=== PATIENT | male | born 1950 | race Caucasian/White ===

== ENCOUNTER 2025-06-27 18:34 | Inpatient (IN) | payer MEDICARE, OTHER ==
[~2025-06-27] VITALS: Ht 177.8 cm; Wt 70.8 kg
[2025-06-27] MEDS ORDERED: CEFTRIAXONE 1GM BAG (ER ONLY) 50 ML IV ONE (18:57)
[2025-06-27] MEDS: IV NS 0.9% 1,000 ML BAG IV ONE (19:07)
[2025-06-27] MEDS: CEFTRIAXONE 1GM BAG (ER ONLY) 1 GM/50 ML PIGGYBACK IV ONE (19:07)
[2025-06-27 19:11] LABS: PLATELET COUNT (AUTO) 258 K/uL (150-450); RED BLOOD CELL COUNT(AUTO) 4.25 MIL/uL (4.5-6.0); RED CELL DISTRIBUTION WIDTH 14.7 % (11.5-15.0); WHITE BLOOD COUNT (AUTO) 10.8 K/uL (4.3-11.0)
[2025-06-27 19:18] LABS: CALCIUM, SERUM 8.7 mg/dL (8.5-10.1); CREATININE 1.2 mg/dL (0.6-1.3); SODIUM SERUM 137 mmol/L (136-145); UREA NITROGEN, BLOOD 40 mg/dL (7-18)
[2025-06-27 19:27] LABS: LACTIC ACID 1.2 mmol/L (0.4-2.0)
[2025-06-27] MEDS ORDERED: DEXTROSE 50%-WATER 50 ML DISP.SYRIN IV PRN (20:00)
[2025-06-27] MEDS ORDERED: MAG HYDROX/AL HYDROX/SIMETH 30 ML UDC PO PRN (20:00)
[2025-06-27] MEDS ORDERED: ONDANSETRON HCL/PF 4 MG/2 ML VIAL IVP PRN (20:00)
[2025-06-27] MEDS ORDERED: MAGNESIUM HYDROXIDE 30 ML UDC PO PRN (20:00)
[2025-06-27] MEDS: IV NS 0.9% 1,000 ML IV SCH (20:52)
[2025-06-27 23:00] VITALS: BP 141/62; TEMP 97.5; O2SAT 100
[2025-06-27] MEDS: BLOOD SUGAR DIAGNOSTIC 1 EACH STRIP IN SCH (23:07)
[2025-06-27] MEDS: INSULIN REGULAR, HUMAN 100 UNIT/ML 3 ML VIAL SQ PRN (23:08)
[2025-06-27 23:25] VITALS: BP 141/62; TEMP 97.5; O2SAT 100
[2025-06-28] MEDS ORDERED: GABA-532 PO (03:29)
[2025-06-28] MEDS ORDERED: DOCU100C36 PO (03:29)
[2025-06-28] MEDS ORDERED: SENN8.6T19 PO (03:29)
[2025-06-28] MEDS ORDERED: AMLO-213 PO (03:29)
[2025-06-28] MEDS ORDERED: TRAZ-182 PO (03:29)
[2025-06-28] MEDS ORDERED: APIX5TAB PO (03:29)
[2025-06-28] MEDS ORDERED: ATOR80TA PO ×2 (03:29)
[2025-06-28] MEDS ORDERED: TAMS-12 PO (03:29)
[2025-06-28] MEDS ORDERED: DIVA250T PO (03:29)
[2025-06-28 07:30] VITALS: BP 120/61; TEMP 97.5; O2SAT 100
[2025-06-28 07:31] LABS: PLATELET COUNT (AUTO) 240 K/uL (150-450); RED BLOOD CELL COUNT(AUTO) 3.75 MIL/uL (4.5-6.0); RED CELL DISTRIBUTION WIDTH 14.5 % (11.5-15.0); WHITE BLOOD COUNT (AUTO) 10.2 K/uL (4.3-11.0)
[2025-06-28 07:34] LABS: ASPARTATE AMINOTRANSFERASE 14.0 U/L (15-37); CALCIUM, SERUM 8.6 mg/dL (8.5-10.1); CREATININE 1.1 mg/dL (0.6-1.3); PHOSPHORUS 2.7 mg/dL (2.5-4.9); SODIUM SERUM 139.0 mmol/L (136-145); TOTAL PROTEIN, SERUM 7.0 g/dL (6.4-8.2); UREA NITROGEN, BLOOD 21.0 mg/dL (7-18)
[2025-06-28] MEDS: ENSURE ENLIVE CHOC 237 ML CAN PO SCH (08:17)
[2025-06-28] MEDS ORDERED: BISA10SU11 RC (08:29)
[2025-06-28] MEDS ORDERED: MAGN400O6 PO (08:29)
[2025-06-28] MEDS ORDERED: ACET-868 PO (08:29)
[2025-06-28] MEDS ORDERED: DIVA125C5 PO (08:29)
[2025-06-28] MEDS ORDERED: NA P133E RC (08:29)
[2025-06-28] MEDS ORDERED: POLY17PO4 PO (08:29)
[2025-06-28] MEDS: CLOTRIMAZOLE/BETAMETASONE DIPROPIONATE 15 GM TUBE TP SCH (09:45)
[2025-06-28] MEDS: GLUCERNA SHAKE 237 ML CAN PO SCH (11:50)
[2025-06-28] MEDS: POTASSIUM CHLORIDE 20 MEQ TAB.PRT.SR PO ONE (11:51)
[2025-06-28] MEDS: CEFTRIAXONE 1 G in IV D5W 50 ML IV SCH (18:37)
[2025-06-28 20:00] VITALS: BP 151/74; TEMP 97.7; O2SAT 99
[2025-06-29 01:31] LABS: APPEARANCE,URINE SLIGHTLY CLOUDY (CLEAR); BLOOD, URINE 2+ Ery/uL (NEGATIVE); LEUKOCYTE ESTERASE ,URINE 3+ (NEGATIVE); NITRITE, URINE NEGATIVE (NEGATIVE); UGLUCOSE NEGATIVE (NEGATIVE)
[2025-06-29 01:37] LABS: ADD URINE CULTURE YES
[2025-06-29 01:38] LABS: SQUAMOUS EPITHELIAL CELL,UR Few /HPF (None Seen)
[2025-06-29 07:54] LABS: PLATELET COUNT (AUTO) 241 K/uL (150-450); RED BLOOD CELL COUNT(AUTO) 4.09 MIL/uL (4.5-6.0); RED CELL DISTRIBUTION WIDTH 14.5 % (11.5-15.0); WHITE BLOOD COUNT (AUTO) 7.2 K/uL (4.3-11.0)
[2025-06-29 08:00] VITALS: BP 141/59; TEMP 97.3; O2SAT 100
[2025-06-29 08:28] LABS: CALCIUM, SERUM 9.1 mg/dL (8.5-10.1); CREATININE 1.2 mg/dL (0.6-1.3); PHOSPHORUS 2.2 mg/dL (2.5-4.9); SODIUM SERUM 140.0 mmol/L (136-145); UREA NITROGEN, BLOOD 15.0 mg/dL (7-18)
[2025-06-29 16:00] VITALS: BP 148/51; TEMP 97.5; O2SAT 100
[2025-06-29] MEDS: K PHOS NEUTRAL 250 MG TABLET PO ONE (16:34)
[2025-06-29] MEDS: IV NS 0.9% 1,000 ML IV PRN (16:36)
[2025-06-29] MEDS: MEGESTROL ACETATE SUSP 400 MG/10 ML UDC PO SCH (17:56)
[2025-06-29 20:00] VITALS: BP 142/61; TEMP 98.1; O2SAT 99
[2025-06-30 06:56] LABS: PLATELET COUNT (AUTO) 219 K/uL (150-450); RED BLOOD CELL COUNT(AUTO) 3.64 MIL/uL (4.5-6.0); RED CELL DISTRIBUTION WIDTH 14.8 % (11.5-15.0); WHITE BLOOD COUNT (AUTO) 8.1 K/uL (4.3-11.0)
[2025-06-30 07:13] LABS: CALCIUM, SERUM 8.4 mg/dL (8.5-10.1); CREATININE 0.9 mg/dL (0.6-1.3); PHOSPHORUS 2.3 mg/dL (2.5-4.9); SODIUM SERUM 141.0 mmol/L (136-145); UREA NITROGEN, BLOOD 16.0 mg/dL (7-18)
[2025-06-30 09:03] VITALS: BP 137/61; TEMP 97.5; O2SAT 98
[2025-06-30] MEDS: POTASSIUM CHLORIDE 20 MEQ TAB.PRT.SR PO SCH (10:17)
[2025-06-30] MEDS: MODAFINIL 100 MG TABLET PO SCH (14:30)
[2025-06-30 16:00] VITALS: BP 125/65; TEMP 97.5; O2SAT 99
[2025-06-30 16:12] VITALS: BP 130/48; TEMP 98.1; O2SAT 100
[2025-06-30] MEDS: K PHOS NEUTRAL 250 MG TABLET PO ONE (16:50)
[2025-06-30] MEDS: Z GUARD REMEDY 4 OZ OINT TP PRN (16:51)
[2025-06-30 19:00] VITALS: BP 140/54; TEMP 97.5; O2SAT 99
[2025-06-30 20:00] VITALS: BP 140/54; TEMP 98.8; O2SAT 99
[2025-07-01] VITALS (21 sets, daily range): BP systolic 108–157; BP diastolic 44–111; TEMP 97.5–98.2; O2SAT 100
[2025-07-01] MEDS: ACETAMINOPHEN 325 MG TABLET PO PRN (01:18)
[2025-07-01] MEDS ORDERED: ATROPINE SULFATE INJ 0.4 MG/ML VIAL IV PRN (05:30)
[2025-07-01 05:43] LABS: PLATELET COUNT (AUTO) 166 K/uL (150-450); RED BLOOD CELL COUNT(AUTO) 3.51 MIL/uL (4.5-6.0); RED CELL DISTRIBUTION WIDTH 14.9 % (11.5-15.0); WHITE BLOOD COUNT (AUTO) 6.6 K/uL (4.3-11.0)
[2025-07-01 05:50] LABS: CALCIUM, SERUM 8.2 mg/dL (8.5-10.1); CREATININE 1.0 mg/dL (0.6-1.3); SODIUM SERUM 138.0 mmol/L (136-145); UREA NITROGEN, BLOOD 21.0 mg/dL (7-18)
[2025-07-02 06:42] LABS: PLATELET COUNT (AUTO) 227 K/uL (150-450); RED BLOOD CELL COUNT(AUTO) 3.62 MIL/uL (4.5-6.0); RED CELL DISTRIBUTION WIDTH 15.0 % (11.5-15.0); WHITE BLOOD COUNT (AUTO) 6.8 K/uL (4.3-11.0)
[2025-07-02 06:58] LABS: CALCIUM, SERUM 8.5 mg/dL (8.5-10.1); CREATININE 0.9 mg/dL (0.6-1.3); PHOSPHORUS 2.5 mg/dL (2.5-4.9); SODIUM SERUM 139.0 mmol/L (136-145); UREA NITROGEN, BLOOD 15.0 mg/dL (7-18)
[2025-07-02 07:10] LABS: PROSTATE SPECIFIC ANTIGEN SCR 0.99 ng/mL (0.00-4.00)
[2025-07-02 07:33] LABS: FREE PSA < 0.06 ng/mL (0.00-45)
[2025-07-02 08:00] VITALS: BP 160/55; TEMP 97.5; O2SAT 100
[2025-07-02] MEDS: POTASSIUM CHLORIDE 20 MEQ TAB.PRT.SR PO ONE (11:44)
[2025-07-02 12:00] VITALS: BP 150/52; TEMP 97.3; O2SAT 98
[2025-07-02 15:16] LABS: HIV-1/2 ANTIBODY NON REACTIVE (NONREACTIVE)
[2025-07-02 16:00] VITALS: BP 148/52; TEMP 97.9; O2SAT 98
[2025-07-02 20:00] VITALS: BP 157/69; TEMP 97.9; O2SAT 100
[2025-07-02] MEDS: PERMETHRIN 5% CRM 60 GM TUBE TP ONE (20:02)
[2025-07-03] VITALS: BP 151/69; TEMP 98; O2SAT 100
[2025-07-03 04:00] VITALS: BP 155/55; TEMP 98; O2SAT 98
[2025-07-03 07:08] LABS: PLATELET COUNT (AUTO) 222 K/uL (150-450); RED BLOOD CELL COUNT(AUTO) 3.60 MIL/uL (4.5-6.0); RED CELL DISTRIBUTION WIDTH 15.0 % (11.5-15.0); WHITE BLOOD COUNT (AUTO) 8.2 K/uL (4.3-11.0)
[2025-07-03 07:16] LABS: CALCIUM, SERUM 8.7 mg/dL (8.5-10.1); CREATININE 0.9 mg/dL (0.6-1.3); SODIUM SERUM 141.0 mmol/L (136-145); UREA NITROGEN, BLOOD 10.0 mg/dL (7-18)
[2025-07-03 08:00] VITALS: BP 105/60; TEMP 97.7; O2SAT 100
[2025-07-03 11:18] VITALS: BP 140/62; TEMP 97.6; O2SAT 100
[2025-07-03 12:00] VITALS: BP 128/45; TEMP 97.6; O2SAT 100
[2025-07-03 20:00] VITALS: BP 145/60; TEMP 97.5; O2SAT 100
[2025-07-04] VITALS: BP 158/67; TEMP 97.6; O2SAT 98
[2025-07-04 04:00] VITALS: BP 141/57; TEMP 97.8; O2SAT 100
[2025-07-04 08:00] VITALS: BP 109/92; TEMP 97.1; O2SAT 100
[2025-07-04 12:00] VITALS: BP 109/92; TEMP 98.6; O2SAT 100
[2025-07-04 16:00] VITALS: BP 141/55; TEMP 98.1; O2SAT 98
[2025-07-04] MEDS: CEFTRIAXONE 2 G in IV D5W 50 ML IV SCH (18:53)
[2025-07-04 20:00] VITALS: BP 148/62; TEMP 98.1; O2SAT 98
[2025-07-05] VITALS: BP 158/69; TEMP 97.9; O2SAT 98
[2025-07-05 04:00] VITALS: BP 149/68; TEMP 97.5; O2SAT 99
[2025-07-05 08:00] VITALS: BP 166/72; TEMP 97.5; O2SAT 100
[2025-07-05 12:00] VITALS: BP 122/58; TEMP 97.6; O2SAT 100
[2025-07-05 16:00] VITALS: BP 147/51; TEMP 97.1; O2SAT 100
[2025-07-05 20:00] VITALS: BP 165/61; TEMP 97.9; O2SAT 98
[2025-07-05] MEDS: CLONIDINE HCL 0.1 MG TABLET PO PRN (20:37)
[2025-07-06] VITALS: BP 131/53; TEMP 97.5; O2SAT 99
[2025-07-06 04:00] VITALS: BP 131/48; TEMP 97.5; O2SAT 99
[2025-07-06 08:00] VITALS: BP 139/58; TEMP 97.7; O2SAT 100
[2025-07-06 12:00] VITALS: BP 119/51; TEMP 97.3; O2SAT 100
[2025-07-06 16:00] VITALS: BP 136/53; TEMP 97.5; O2SAT 100
[2025-07-06 20:00] VITALS: BP 144/54; TEMP 97.7; O2SAT 99
[2025-07-07] VITALS: BP 150/64; TEMP 97.7; O2SAT 99
[2025-07-07 04:00] VITALS: BP 125/60; TEMP 97.9; O2SAT 98
[2025-07-07 06:53] LABS: PLATELET COUNT (AUTO) 202 K/uL (150-450); RED BLOOD CELL COUNT(AUTO) 3.51 MIL/uL (4.5-6.0); RED CELL DISTRIBUTION WIDTH 16.9 % (11.5-15.0); WHITE BLOOD COUNT (AUTO) 8.7 K/uL (4.3-11.0)
[2025-07-07 07:00] LABS: CALCIUM, SERUM 8.9 mg/dL (8.5-10.1); CREATININE 1.1 mg/dL (0.6-1.3); SODIUM SERUM 139.0 mmol/L (136-145); UREA NITROGEN, BLOOD 25.0 mg/dL (7-18)
[2025-07-07 08:00] VITALS: BP 146/62; TEMP 98.1; O2SAT 100
[2025-07-07 12:00] VITALS: BP 156/63; TEMP 97.7; O2SAT 100
== END 2025-07-07 13:45 | disposition short-term general hospital (02) | DRG 308 ==
LOC: ER 18:55 → MED 21:58 → TELE 07-01 04:00 → ICU 07-01 05:27 → TELE1 07-01 13:51 → UNDODISIN 07-03 14:10 → TELE1 07-03 20:26
PROVIDERS: ATTEND Internal Medicine
DX: R00.1 Bradycardia, unspecified (principal); G93.41 Metabolic encephalopathy; E44.0 Moderate protein-calorie malnutrition; E87.6 Hypokalemia; R62.7 Adult failure to thrive; I10 Essential (primary) hypertension; E11.9 Type 2 diabetes mellitus without complications; N40.0 Benign prostatic hyperplasia without lower urinary tract symptoms; I48.91 Unspecified atrial fibrillation; Z86.73 Personal history of transient ischemic attack (TIA), and cerebral infarction without residual deficits; E78.5 Hyperlipidemia, unspecified; F20.9 Schizophrenia, unspecified; I25.10 Atherosclerotic heart disease of native coronary artery without angina pectoris; Z95.1 Presence of aortocoronary bypass graft; R29.6 Repeated falls; R53.1 Weakness; F39 Unspecified mood [affective] disorder; Z68.22 Body mass index [BMI] 22.0-22.9, adult; B96.89 Other specified bacterial agents as the cause of diseases classified elsewhere; E86.0 Dehydration; B86 Scabies; F32.A Depression, unspecified
CPT/HCPCS: 36415; 71045-TC; 80048-TC; 80053-TC; 81001; 82607-TC; 82962-TC; 83605-TC; 83735-TC; 84100-TC; 84153-TC; 84154-TC; 84443-TC; 84484-TC; 85025-TC; 86803; 87040-TC; 87081-TC; 87086-TC; 87806; 93307-TC; A4223; G0378; J0696; J1815; J3490; J7030; J7060

== ENCOUNTER 2025-07-03 15:44 | Emergency (ER) | payer MEDICARE, OTHER ==
[~2025-07-03] VITALS: Ht 177.8 cm; Wt 65.8 kg
[~2025-07-03 15:44] MED LIST: ACET-868 PO; AMLO-213 PO; APIX5TAB PO; ATOR80TA PO; BISA10SU11 RC; DIVA125C5 PO; DOCU100C36 PO; GABA-532 PO; MAGN400O6 PO; NA P133E RC; POLY17PO4 PO; SENN8.6T19 PO; TAMS-12 PO; TRAZ-182 PO
[2025-07-03 16:17] VITALS: BP 141/51; TEMP 97.5; O2SAT 98
[2025-07-03 17:12] LABS: PLATELET COUNT (AUTO) 227 K/uL (150-450); RED BLOOD CELL COUNT(AUTO) 3.55 MIL/uL (4.5-6.0); RED CELL DISTRIBUTION WIDTH 15.4 % (11.5-15.0); WHITE BLOOD COUNT (AUTO) 8.3 K/uL (4.3-11.0)
[2025-07-03 17:19] LABS: CALCIUM, SERUM 8.7 mg/dL (8.5-10.1); CREATININE 1.0 mg/dL (0.6-1.3); SODIUM SERUM 139.0 mmol/L (136-145); UREA NITROGEN, BLOOD 15.0 mg/dL (7-18)
[2025-07-03 17:35] LABS: ASPARTATE AMINOTRANSFERASE 14.0 U/L (15-37); NT-PRO BNP 3234.0 pg/mL (0-125); TOTAL PROTEIN, SERUM 6.4 g/dL (6.4-8.2)
[2025-07-03] MEDS ORDERED: ONDANSETRON HCL/PF 4 MG/2 ML VIAL IVP PRN (18:00)
[2025-07-03] MEDS ORDERED: POLYETHYLENE GLYCOL 3350 17 GM POWD.PACK PO PRN (18:00)
[2025-07-03] MEDS ORDERED: BISACODYL SUPP (10 MG) 10 MG/SUPP.RECT SUPP.RECT RC PRN (18:00)
[2025-07-03] MEDS ORDERED: Z GUARD REMEDY 4 OZ OINT TP PRN ×2 (18:00→18:45)
[2025-07-03] MEDS ORDERED: MAG HYDROX/AL HYDROX/SIMETH 30 ML UDC PO PRN (18:00)
[2025-07-03] MEDS ORDERED: MAGNESIUM HYDROXIDE 30 ML UDC PO PRN (18:00)
[2025-07-03] MEDS ORDERED: ACETAMINOPHEN 325 MG TABLET PO PRN ×2 (18:00)
[2025-07-03] MEDS ORDERED: TAMSULOSIN 0.4 MG CAP.SR.24H PO SCH (22:00)
[2025-07-03] MEDS ORDERED: ATORVASTATIN 40 MG TABLET PO SCH (22:00)
[2025-07-03] MEDS ORDERED: GABAPENTIN 100 MG CAPSULE PO SCH (22:00)
[2025-07-03] MEDS ORDERED: SENNOSIDES 8.6 MG TABLET PO SCH (22:00)
[2025-07-03] MEDS ORDERED: TRAZODONE 50 MG TABLET PO SCH (22:00)
[2025-07-04] MEDS ORDERED: AMLODIPINE BESYLATE 10 MG TABLET PO SCH (09:00)
[2025-07-04] MEDS ORDERED: DOCUSATE SODIUM 100 MG CAPSULE PO SCH (09:00)
[2025-07-04] MEDS ORDERED: APIXABAN 5 MG TABLET PO SCH (09:00)
[2025-07-04] MEDS ORDERED: DIVALPROEX SODIUM 125 MG CAP.SPRINK PO SCH ×2 (09:00)
[2025-07-04] MEDS ORDERED: HYDROCHLOROTHIAZIDE 25 MG TABLET PO SCH (09:00)
== END 2025-07-03 18:31 | disposition admitted as inpatient to this hospital (09) ==
LOC: ER 15:50 → TELE1 18:59 → UNDOADMIN 18:59
DX: R00.1 Bradycardia, unspecified (principal); I10 Essential (primary) hypertension; E11.9 Type 2 diabetes mellitus without complications; E78.5 Hyperlipidemia, unspecified; F20.9 Schizophrenia, unspecified; G93.49 Other encephalopathy; I48.20 Chronic atrial fibrillation, unspecified; R06.02 Shortness of breath; I44.0 Atrioventricular block, first degree; N40.0 Benign prostatic hyperplasia without lower urinary tract symptoms; E87.6 Hypokalemia; F32.A Depression, unspecified; G93.41 Metabolic encephalopathy; I25.10 Atherosclerotic heart disease of native coronary artery without angina pectoris; R62.7 Adult failure to thrive; Z86.73 Personal history of transient ischemic attack (TIA), and cerebral infarction without residual deficits; Z87.440 Personal history of urinary (tract) infections; Z95.1 Presence of aortocoronary bypass graft
CPT/HCPCS: 36415; 71045-TC; 80048-TC; 80076-TC; 83735-TC; 83880; 84484-TC; 85025-TC; 87081-TC